=== PATIENT | male | born 1985 | race African-American/Black ===

== ENCOUNTER → 2017-04-06 15:29 | Outpatient (POV) | payer OTHER, SELFPAY | PROVIDERS: Visit Provider Physician Assistant | DX: Z00.00 Encounter for general adult medical examination without abnormal findings (principal) ==

== ENCOUNTER → 2017-04-11 07:34 | Outpatient (CLI) | payer OTHER, SELFPAY ==
[2017-04-11 08:18] LABS: Basophils % 0.7 % (0.1-2.0); Eosinophils # 0.1 K/mm3 (0.0-0.4); Eosinophils % 1.4 % (0.1-12.0); Hematocrit 43.1 % (42.0-52.0); Lymphocytes # 1.7 K/mm3 (0.7-4.5); Lymphocytes % 28.8 K/mm3 (10-50); Mean Corpuscular HGB Conc 32.5 g/dL (31.8-35.4); Mean Corpuscular Volume 79.9 fl (80-94); Mean Platelet Volume 8.1 fl (7.4-10.4); Monocytes # 0.4 K/mm3 (0.1-1.0); Neutrophils # 3.6 K/mm3 (1.8-7.8); Neutrophils % 62.1 % (37.0-80.0); Platelet Count 187 K/mm3 (142-424); Red Blood Count 5.39 M/mm3 (4.60-6.20); Red Cell Distribution Width 13.3 % (11.5-17.5); White Blood Count 5.9 K/mm3 (4.8-10.8)
[2017-04-11 09:25] LABS: Alanine Aminotransferase 43 U/L (12-78); Albumin Level 3.9 gm/dL (3.4-5.0); Albumin/Globulin Ratio 1.1 (1.1-1.8); Alkaline Phosphatase 71 U/L (46-116); Anion Gap 12.3 mEq/L (5-15); Aspartate Amino Transferase 26 U/L (15-37); Bilirubin,Total 0.5 mg/dL (0.2-1.0); Blood Urea Nitrogen 13 mg/dL (7-18); Calcium 8.8 mg/dL (8.5-10.1); Carbon Dioxide 27 mmol/L (21.0-32.0); Chloride 104 mmol/L (98-107); Chol/HDL Ratio 3.1 (1-3.5); Cholesterol 153 mg/dL (140-200); Creatinine,Serum 0.96 mg/dL (0.70-1.30); Estimated Glomerular Filt Rate 91 ml/min (>60); GFR (African American) 111 ML/MIN (>60); Globulin 3.6 gm/dl (1.3-3.2); Glucose 94 mg/dL (74-106); HDL Cholesterol 49 mg/dL (27-67); LDL Cholesterol 95 mg/dL (0-130); Potassium 4.3 mmoL/L (3.5-5.1); Sodium 139 mmol/L (136-145); Total Protein,Serum 7.5 gm/dL (6.4-8.2); Triglycerides 46 mg/dL (30-200); VLDL Cholesterol 9 mg/dL (0-40)
== END ==
PROVIDERS: PCP Family Medicine; Visit Provider Physician Assistant
DX: L70.0 Acne vulgaris (principal); Z79.899 Other long term (current) drug therapy
CPT/HCPCS: 36415; 80053; 80061; 85025

== ENCOUNTER → 2017-06-11 16:45 | Outpatient (CLI) | payer OTHER, SELFPAY ==
[2017-06-11 17:11] LABS: Basophils % 0.5 % (0.1-2.0); Eosinophils # 0.1 K/mm3 (0.0-0.4); Eosinophils % 1.1 % (0.1-12.0); Lymphocytes # 2.3 K/mm3 (0.7-4.5); Lymphocytes % 27.5 K/mm3 (10-50); Mean Corpuscular HGB Conc 31.8 g/dL (31.8-35.4); Mean Corpuscular Hemoglobin 25.6 pg (27.0-31.2); Mean Corpuscular Volume 80.4 fl (80-94); Mean Platelet Volume 8.3 fl (7.4-10.4); Monocytes # 0.7 K/mm3 (0.1-1.0); Monocytes % 8.5 % (1.7-9.3); Neutrophils # 5.1 K/mm3 (1.8-7.8); Neutrophils % 62.3 % (37.0-80.0); Platelet Count 205 K/mm3 (142-424); Red Blood Count 5.47 M/mm3 (4.60-6.20); Red Cell Distribution Width 13.3 % (11.5-17.5); White Blood Count 8.2 K/mm3 (4.8-10.8)
[2017-06-11 17:20] LABS: Alanine Aminotransferase 37 U/L (12-78); Albumin Level 4.1 gm/dL (3.4-5.0); Albumin/Globulin Ratio 0.9 (1.1-1.8); Alkaline Phosphatase 84 U/L (46-116); Anion Gap 12.7 mEq/L (5-15); Aspartate Amino Transferase 19 U/L (15-37); Bilirubin,Total 0.7 mg/dL (0.2-1.0); Blood Urea Nitrogen 11 mg/dL (7-18); Calcium 8.8 mg/dL (8.5-10.1); Carbon Dioxide 28 mmol/L (21.0-32.0); Chloride 102 mmol/L (98-107); Chol/HDL Ratio 3.5 (1-3.5); Cholesterol 171 mg/dL (140-200); Creatinine,Serum 0.95 mg/dL (0.70-1.30); Estimated Glomerular Filt Rate 92 ml/min (>60); GFR (African American) 112 ML/MIN (>60); Globulin 4.4 gm/dl (1.3-3.2); Glucose 85 mg/dL (74-106); HDL Cholesterol 49 mg/dL (27-67); LDL Cholesterol 110 mg/dL (0-130); Potassium 3.7 mmoL/L (3.5-5.1); Sodium 139 mmol/L (136-145); Total Protein,Serum 8.5 gm/dL (6.4-8.2); Triglycerides 61 mg/dL (30-200); VLDL Cholesterol 12 mg/dL (0-40)
== END ==
PROVIDERS: Visit Provider Physician Assistant
DX: L70.0 Acne vulgaris (principal); Z79.899 Other long term (current) drug therapy
CPT/HCPCS: 36415; 80053; 80061; 85025

== ENCOUNTER → 2017-08-10 15:16 | Outpatient (POV) | payer OTHER, SELFPAY | PROVIDERS: Visit Provider Physician Assistant | DX: Z00.00 Encounter for general adult medical examination without abnormal findings (principal) ==

== ENCOUNTER 2020-08-22 21:58 | Emergency (ER) | payer BC, SELFPAY ==
[2020-08-22 22:09] VITALS: BP 127/87; PULSE 76; RESP 16; TEMP 36.5; O2SAT 99; BMI 37.3
--- NOTE | 2020-08-22 22:29 | CT_ITS ---
PROCEDURE INFORMATION: Exam: CT Maxillofacial Without Contrast, Sinus Exam date and time: 08/22/2020 10:29 PM Age: 34 years old Clinical indication: Patient HX: Left face pain and nasal pain and headache; Additional info: H/a TECHNIQUE: Imaging protocol: CT Maxillofacial without contrast. Focus on the sinuses. Radiation optimization: All CT scans at this facility use at least one of these dose optimization techniques: automated exposure control; mA and/or kV adjustment per patient size (includes targeted exams where dose is matched to clinical indication); or iterative reconstruction. COMPARISON: No relevant prior studies available. FINDINGS: Frontal sinuses: Normal. No air-fluid levels. Ethmoid air cells: There is minimal mucosal thickening within the anterior ethmoid air cells. Sphenoid sinuses: Normal. No air-fluid levels. Maxillary sinuses: Normal. No air-fluid levels. Ostiomeatal units are patent. Nasal cavity/Septum: The ostiomeatal units are grossly patent bilaterally. Orbital cavity: The globes appear normal and the lenses normally positioned. There is no retro-orbital abnormality. Bones/joints: The paranasal sinuses are otherwise clear. No acute fracture or dislocation. Soft tissues: No soft tissue swelling or stranding is seen. IMPRESSION: No evidence of acute or chronic sinusitis.
--- NOTE | 2020-08-22 22:29 | CT_ITS ---
PROCEDURE INFORMATION: Exam: CT Head Without Contrast Exam date and time: 08/22/2020 10:29 PM Age: 34 years old Clinical indication: Headache not specified; Patient HX: Headache and left facial pain and nasal pain; Additional info: H/a TECHNIQUE: Imaging protocol: Computed tomography of the head without contrast. Radiation optimization: All CT scans at this facility use at least one of these dose optimization techniques: automated exposure control; mA and/or kV adjustment per patient size (includes targeted exams where dose is matched to clinical indication); or iterative reconstruction. COMPARISON: No relevant prior studies available. FINDINGS: Brain: The cerna-white matter differentiation and basilar cisterns are maintained. There is no mass, mass effect or midline shift. No acute intracranial hemorrhage is identified. Cerebral ventricles: No intraventricular hemorrhage or mass. Paranasal sinuses: Visualized paranasal sinuses are clear. Mastoid air cells: Visualized mastoid air cells are well aerated and clear. Orbital cavity: The globes appear unremarkable and there is no retro-orbital abnormality. Bones/joints: Osseous structures are intact. No osteolytic or blastic bone lesions appreciated. Soft tissues: No focal scalp swelling or hematoma. IMPRESSION: 1. No acute intracranial process identified.
[2020-08-22 22:40] LABS: Chloride 102 mmol/L (98-107)
[2020-08-22 22:41] LABS: Potassium 3.9 mmoL/L (3.5-5.1); Sodium 135 mmol/L (136-145)
[2020-08-22 22:43] LABS: Alanine Aminotransferase 49 U/L (12-78); Alkaline Phosphatase 76 U/L (38-126); Aspartate Amino Transferase 37 U/L (17-59); Basophils # 0.1 K/mm3 (0-0.2); Basophils % 0.7 % (0.1-2.0); Bilirubin,Total 0.9 mg/dl (0.2-1.3); Blood Urea Nitrogen 12 mg/dl (9-20); Creatinine Clearance Estimated 199 mL/min (50-200); Eosinophils # 0.3 K/mm3 (0.0-0.4); Eosinophils % 4.1 % (0.1-12.0); Estimated Glomerular Filt Rate 97 ml/min (>60); GFR (African American) 117 ML/MIN (>60); Hematocrit 40.8 % (42.0-52.0); Hemoglobin 13.6 g/dL (14.1-18.0); Lymphocytes # 2.9 K/mm3 (0.7-4.5); Lymphocytes % 34.2 % (10-50); Mean Corpuscular HGB Conc 33.3 g/dL (31.8-35.4); Mean Corpuscular Hemoglobin 26.3 pg (27.0-31.2); Mean Corpuscular Volume 78.8 fl (80-94); Mean Platelet Volume 8.4 fl (7.4-10.4); Monocytes # 0.6 K/mm3 (0.1-1.0); Monocytes % 7.7 % (1.7-9.3); Neutrophils # 4.5 K/mm3 (1.8-7.8); Neutrophils % 53.3 % (37.0-80.0); Platelet Count 183 K/mm3 (142-424); Red Blood Count 5.17 M/mm3 (4.60-6.20); Red Cell Distribution Width 13.8 % (11.5-17.5); White Blood Count 8.4 K/mm3 (4.8-10.8)
[2020-08-22 22:44] LABS: Albumin Level 4.3 g/dl (3.5-5.0); Albumin/Globulin Ratio 1.2 (1.1-1.8); Anion Gap 10.9 mEq/L (5-15); Calcium 8.8 mg/dl (8.4-10.2); Carbon Dioxide 26 mmol/L (22.0-30.0); Globulin 3.7 g/dL (1.3-3.2); Glucose 94 mg/dl (74-100)
[2020-08-22 22:49] LABS: C-Reactive Protein 5.9 mg/L (0-4)
--- NOTE | 2020-08-22 22:49 | HMH.EDHA ---
ED Disposition Clinical Impression: Sinusitis Qualifiers: Sinusitis location: unspecified location Chronicity: acute Recurrence: not specified as recurrent Qualified Code(s): J01.90 - Acute sinusitis, unspecified Headache Qualifiers: Headache type: unspecified Headache chronicity pattern: acute headache Intractability: not intractable Qualified Code(s): R51.9 - Headache, unspecified Disposition: Home, Self-Care Condition on Discharge: Good Instructions: DI for Sinusitis Additional Instructions: use meds and see pcp for follow up Prescriptions: cephALEXin [cephALEXin 500mg capsule*] 500 mg PO TID #30 cap Transmission Status: Pending to [id number] predniSONE [Prednisone 20mg Tab] 20 mg PO BID #10 tab [facility]: [facility] Referrals: Alexis Jacob MD [Primary Care Provider] - - Critical Care Critical Care Time: No Attestation: On 08/22/20, the high probability of a clinically significant, sudden or life threatening deterioration of the following system(s) required my full and direct attention, intervention and personal management. The time I documented below is in addition to time spent performing reported procedures but includes the following listed in this critical care notation. Medical Decision Making - Medical Records Medical records reviewed: Yes: I reviewed the patient's medical records. - Rohit Inquiry Pt receiving controlled substance: No Vital Signs: 08/22/20 22:09 08/22/20 23:05 Temperature 97.7 F Temperature Source Oral Pulse Rate 64 Pulse Rate [Right] 76 Respiratory Rate 16 Blood Pressure 113/65 Blood Pressure [Right Arm] 127/87 Blood Pressure Mean [Right Arm] 100 Blood Pressure Source [Right Arm] Automatic Cuff Blood Pressure Position [Right Arm] Sitting 02 Sat by Pulse Oximetry 99 98 Oxygen Delivery Method Room Air - Lab Data Lab results reviewed: Yes: I reviewed the patient's lab results. Lab Results 08/22/20 22:25: WBC 8.4, RBC 5.17, Hgb 13.6 L, Hct 40.8 L, MCV 78.8 L, MCH 26.3 L, MCHC 33.3, RDW 13.8, Plt Count 183, MPV 8.4, Neut % (Auto) 53.3, Lymph % (Auto) 34.2, Catron % (Auto) 7.7, Eos % (Auto) 4.1, Baso % (Auto) 0.7, Neut # (Auto) 4.5, Lymph # (Auto) 2.9, Catron # (Auto) 0.6, Eos # (Auto) 0.3, Baso # (Auto) 0.1, ESR 25 H 08/22/20 22:25: Sodium 135 L, Potassium 3.9, Chloride 102, Carbon Dioxide 26, Anion Gap 10.9, BUN 12, Creatinine 0.90, Estimated Creat Clear 199, Estimated GFR 97, Est GFR ( Amer) 117, Glucose 94, Calcium 8.8, Total Bilirubin 0.9, AST 37, ALT 49, Alkaline Phosphatase 76, C-Reactive Protein 5.9 H, Total Protein 8.0, Albumin 4.3, Globulin 3.7 H, Albumin/Globulin Ratio 1.2 Result diagrams: 08/22/20 22:25 08/22/20 22:25 Orders (Tests/Meds): ED MEDICATIONS Generic Name Dose Route Start Last Admin Trade Name Freq PRN Reason Stop Dose Admin Sodium Chloride 1,000 mls @ 999 mls/hr 08/22/20 22:30 08/22/20 22:38 Sod Chlor 0.9% 1000ml Bag IV 08/22/20 23:30 999 mls/hr .Q1H1M WINNIE Administration Ceftriaxone Sodium 1 gm/ 50 mls @ 100 mls/hr 08/22/20 23:36 08/22/20 23:41 Sodium Chloride IV 08/23/20 00:05 100 mls/hr ONCE ONE Administration Protocol Discontinued Medications Generic Name Dose Route Start Last Admin Trade Name Freq PRN Reason Stop Dose Admin Diphenhydramine HCl 50 mg 08/22/20 22:28 08/22/20 22:36 Diphenhydramine 50mg/Ml Vial IV 08/22/20 22:29 50 mg ONCE ONE Administration Ketorolac Tromethamine 30 mg 08/22/20 22:29 08/22/20 22:36 Ketorolac 30mg/Ml Vial IV 08/22/20 22:30 30 mg ONCE ONE Administration Methylprednisolone Sodium Succinate 125 mg 08/22/20 22:18 08/22/20 22:36 Methylprednisolone Sod Succ 125mg Vial IV 08/22/20 22:19 125 mg ONCE ONE Administration ORDERS Category Date Time Status C-Reactive Protein Stat Lab 08/22/20 22:25 Results Comprehensive Metabolic Panel Stat Lab 08/22/20 22:25 Results Procalc
[2020-08-22 23:05] VITALS: BP 113/65; PULSE 64; O2SAT 98
[2020-08-22 23:46] LABS: Erythrocyte Sedimentation Rate 25 mm/hr (0-15)
[2020-08-23 00:09] VITALS: BP 106/67; PULSE 85; RESP 16; TEMP 36.7; O2SAT 96
[2020-08-23 00:38] LABS: Procalcitonin 0.084 ng/mL (0.0-2.0)
== END 2020-08-23 00:42 | disposition home or self-care (01) ==
PROVIDERS: Emergency Provider Emergency Medicine; PCP Family Medicine
DX: J01.90 Acute sinusitis, unspecified (principal)
CPT/HCPCS: 70450; 70486; 80053; 84145; 85025; 85651; 86140; 96365; 96375; 99282

== ENCOUNTER 2021-06-10 09:31 | Emergency (ER) | payer BC, SELFPAY ==
--- NOTE | 2021-06-10 10:51 | HMH.EDUTC ---
[facility] [place] Disposition Clinical Impression: Allergic reaction Disposition: Home, Self-Care Condition on Discharge: Good Instructions: DI for General Allergic Reactions Additional Instructions: Try to identify and avoid contact with the offending substance. Don't start the oral steroids until tomorrow. Don't take the vistaril that we prescribed and benedryl too. These are similar medications and they would make you too drowsy together. Don't drive or operated heavy machinery after taking the vistaril because it will make you drowsy. Follow up with your regular doctor. GO TO THE ER FOR ANY WORSENING SYMPTOMS OR CONCERNS Prescriptions: hydrOXYzine pamoate [Vistaril] 25 mg PO Q6HP PRN #30 cap PRN Reason: Itching [facility] methylPREDNISolone [Medrol] 4 mg PO DIRECTED 6 Days #21 packet Transmission Status: [facility] Famotidine [Pepcid 20mg Tablet] 20 mg PO BID 14 Days #28 tab Transmission [facility]: [facility] Referrals: Alexis Jacob MD [Primary Care Provider] - Forms: Work/School Release Time of Disposition: 11:36 Medical Decision Making - Medical Records Medical records reviewed: No: I reviewed the patient's medical records. - Rohit Inquiry Pt receiving controlled substance: No Vital Signs: 06/10/21 10:52 06/10/21 11:43 Temperature 98.6 F 98.6 F Temperature Source Oral Oral Pulse Rate 71 Pulse Rate [Left Radial] 77 Respiratory Rate 16 16 Blood Pressure 129/81 Blood Pressure [Right Arm] 131/89 Blood Pressure Mean [Right Arm] 103 02 Sat by Pulse Oximetry 100 Oxygen Delivery Method Room Air Orders (Tests/Meds): ED MEDICATIONS Discontinued Medications Generic Name Dose Route Start Last Admin Trade Name Freq PRN Reason Stop Dose Admin Methylprednisolone Sodium Succinate 125 mg 06/10/21 10:56 06/10/21 11:05 Methylprednisolone Sod Succ 125mg Vial IM 06/10/21 10:57 125 mg ONCE ONE Administration [facility] [place] HPI - General Stated complaint: upper body redness/burning/itchy Time Seen by Provider: 06/10/21 10:51 - History of Present Illness Provider Complaint: He has been having itching and rash of his chest, abdomen and back for the past 1 day. He denies any shortness of breath, chest pain, wheezing, and mouth and throat swelling. - Related Data Previous Rx's Medication Instructions Recorded prednisone 20 mg tablet 20 mg PO BID 5 Days #10 tab 09/12/20 triamcinolone acetonide 0.5 % 1 applic TOPICAL BID 7 Days #15 g 09/12/20 topical cream Famotidine [Pepcid 20mg Tablet] 20 mg PO BID 14 Days #28 tab 06/10/21 hydrOXYzine pamoate [Vistaril] 25 mg PO Q6HP PRN #30 cap 06/10/21 methylPREDNISolone [Medrol] 4 mg PO DIRECTED 6 Days #21 06/10/21 packet Allergies Allergy/AdvReac Type Severity Reaction Status Date / Time nickel [NICKEL] Allergy Unknown Verified 09/10/20 16:46 [facility] History - Hepatitis A Screen Attestation statement:: This patient has been screened for Hepatitis A risk factors. I have reviewed the patient's past medical history: Yes Medical History: Denies:: Diabetes Mellitus Type 1, Diabetes Mellitus Type 2 Other Medical History: Reports: Sinus Problems Other Surgeries: Yes: Appendectomy Amputation: No Fractures: No Comment: Left ear - Social History Smoking Status: Never smoker Alcohol Intake: never Alcohol Intake Frequency:: holidays/special occasions only Substance Use Type: denies use Occupational Status: employed Housing: house Household Members: spouse Family Hx:: Cancer ROS Obtained: Yes All systems reviewed & no additional complaints - Constitutional Constitutional: Denies chills, Denies fever(s) - Eyes Eyes: Denies eye discharge, Denies itchy eyes - ENT Ears, Nose, Mouth, and Throat: Denies dizziness, Denies otalgia, Denies sore throat, Denies throat swelling - Cardiovascular Cardiovascular: Denies chest pain
[2021-06-10 10:52] VITALS: BP 131/89; PULSE 77; RESP 16; TEMP 37; O2SAT 100; BMI 37.6
[2021-06-10 11:43] VITALS: BP 129/81; PULSE 71; RESP 16; TEMP 37; O2SAT 100
== END 2021-06-10 11:45 | disposition home or self-care (01) ==
PROVIDERS: Emergency Provider Nurse Practitioner Family; PCP Family Medicine
DX: L50.0 Allergic urticaria (principal)
CPT/HCPCS: 96372; 99213; G0463

== ENCOUNTER 2023-09-22 21:34 | Emergency (ER) | payer SELFPAY ==
[2023-09-22 21:36] VITALS: BP 150/100; PULSE 90; RESP 20; TEMP 36.6; O2SAT 99; BMI 38.3
[2023-09-22] MEDS: DEXAMETHASONE 4MG/ML 1ML VIAL 10 MG IM (21:57)
--- NOTE | 2023-09-22 21:57 | HMH.EDGENADL ---
Discharge Plan Disposition Patient Disposition: Home, Self-Care Prescriptions Prescriptions: New dexamethasone 2 mg tablet 10 mg PO ONCE Qty: 5 0RF Rx Instructions: Please take 48-72 hours after ED dose No Action triamcinolone acetonide 0.5 % cream 1 applic TOPICAL BID 7 Days Qty: 15 0RF prednisone 20 mg tablet 20 mg PO BID 5 Days Qty: 10 0RF Rx Instructions: administer with food or milk methylprednisolone 4 MG tablets,dose pack 4 mg PO DIRECTED 6 Days Qty: 21 0RF famotidine 20 MG tablet 20 mg PO BID 14 Days Qty: 28 0RF hydroxyzine pamoate 25 MG capsule 25 mg PO Q6HP PRN (Reason: Itching) Qty: 30 0RF Activity Restrictions/Add. Instructions Additional Instructions/Restrictions: You have a nonspecific eczematous rash which is either localized urticaria or hives which would be an allergic reaction versus localized allergic reaction or inflammatory response from bug bites. Treatment will be the same no evidence of an infection we will treat with steroids continue take antihistamine such as Benadryl and apply calamine lotion as discussed. Please return with any difficulty breathing or other symptoms such as swelling in your mouth or your tongue. You have been given an additional dose of dexamethasone to take in 72 hours if you are still symptomatic. Clinical Impressions Clinical Impression: Allergic reaction, Rash Instructions Patient Instructions: DI for Skin Abscess Discharge ED Provider: Cresencio Javier General Adult HPI General Chief complaint: Skin/Abscess/Foreign Body Stated complaint: Rash from waist down Time Seen by Provider: 09/22/23 21:43 Mode of Arrival: Ambulatory Source of Information: Patient Limitations: No Limitations Description of Symptoms (Recalled from ER Triage Doc. by RN): pt went fishing yesterday and then last night noticed he was itching arund his waistline, pt took benadryl today and it has not helped History of Present Illness HPI narrative: 37-year-old male presenting today with a rash and significant pruritus in the location where he is having the lesions. States he went fishing and then yesterday evening started noticing significant itching around the posterior buttock region on bilateral sides in the inferior groins as well medially. Denies any symptoms outside of this location. Denies any hives elsewhere swelling in his mouth or difficulty breathing GI symptoms or cardiovascular symptoms. Has tried some topical Benadryl as well as some oral Benadryl without any improvement in symptoms. Related Data Previous Rx's Medication Instructions Recorded prednisone 20 mg tablet 20 mg PO BID rash 5 days #10 tabs 09/12/20 triamcinolone acetonide 0.5 % 1 applic topical BID rash 7 days 09/12/20 topical cream #15 grams famotidine 20 mg tablet 20 mg PO BID 14 days #28 tabs 06/10/21 hydroxyzine pamoate 25 mg capsule 25 mg PO Q6HP PRN Itching #30 caps 06/10/21 methylprednisolone 4 mg tablets in 4 mg PO DIRECTED 6 days #21 06/10/21 a dose pack packets dexamethasone 2 mg tablet 10 mg (5 x 2 mg) PO ONCE #5 tabs 09/22/23 Allergies Allergy/AdvReac Type Severity Reaction Status Date / Time nickel [NICKEL] Allergy Unknown Verified 09/10/20 16:46 [facility] Disclaimer: The information contained in this section may have been updated after the patient was seen, as this information can be updated by other users. Social History Smoking Status: Never smoker alcohol intake: never substance use type: denies use current occupational status: employed Travel in the last 8 weeks: None household members: spouse housing: house ROS Obtained: Yes All systems reviewed & no additional complaints except as documented Physical Exam General General appearance: alert Respiratory Respiratory exam: Present normal lung sounds bilaterally Cardiovascular Cardiovascular exam: Present regular rate Neurological Exam Neurological exam: Present alert and oriented X3 Skin Skin exam: Present other (Localized area of erythema and swelling numerous circular regions in the posterior buttocks bilaterally and medial groins bilaterally no skin lesions elsewhere) Medical Decision Making Rohit Inquiry Pt receiving controlled substance: No Vital Signs: 09/22/23 21:36 Temperature 97.9 F Temperature Source Oral Pulse Rate [Right Radial] 90 Respiratory Rate 20 Blood Pressure [Right Arm] 150/100 H Blood Pressure Mean [Right Arm] 116 02 Sat by Pulse Oximetry 99 Oxygen Delivery Method Room Air Orders (Tests/Meds): ED MEDICATIONS Discontinued Medications Generic Name Dose Route Start Last Admin Trade Name Freq PRN Reason Stop Dose Admin Dexamethasone Sodium Phosphate 10 mg 09/22/23 21:51 Dexamethasone 4mg/Ml 1ml Vial IM 09/22/23 21:52 ONCE ONE Medical Decision Narrative: 37-year-old with localized areas of erythema and induration that are intensely pruritic most likely bug bites with associated allergic reaction or histamine release. Has a similar appearance to urticarial rash but nothing is outside of this localized region so most likely in the setting of being in a location where he was fishing in the location of these pruritic lesions this is bug bites with localized inflammatory response/histamine release. Treatment for the same this particular situation given the severity of his symptoms. He has already tried some topical and systemic antihistamines we will give him a dose of dexamethasone which should improve his symptoms. He was also given a prescription of dexamethasone to take in 72 hours if he is not improving. He has been advised to continue to take oral Benadryl and to apply calamine lotion. I expect he will have significant improvement in symptoms next 24 hours. He has been advised to return with any signs or symptoms of anaphylaxis which she does not currently have. He was discharged in a stable condition. Critical Care Critical Care Time Critical Care Time: No
[2023-09-22 22:06] VITALS: BP 150/100; PULSE 90; RESP 20; TEMP 36.6; O2SAT 99
== END 2023-09-22 22:08 | disposition home or self-care (01) ==
PROVIDERS: Emergency Provider Student in an Organized Health Care Education/Training Program
DX: L50.0 Allergic urticaria (principal); T78.40XA Allergy, unspecified, initial encounter
CPT/HCPCS: 96372; 99283; J1100